=== PATIENT | female | born 1985 | race Caucasian/White ===

== ENCOUNTER → 2017-04-22 | Outpatient (CLI) | payer OTHER ==
[~2017-04-22] MED LIST: ALLERGY SHOTS SC; CELEXA10 M1 PO; CLARITIN 10MG T10 MG PO; FLOMAX 0.4MG C0.4 MG PO; FLONASE 50 MCG16 GM; FOLIC ACID 1MG T1 MG PO; GLYBURIDE2.5 MG PO; IBUPROFEN400 MG PO; INDERAL20 MG PO; IRON TABLETS325 MG PO; LEVOCETIRIZINE D5 MG PO; MAXALT10 MG PO; MECLIZINE 25MG25 MG PO; MEDROL 4MG. DOSE4 MG PO; MONTELUKAST SOD10 MG PO; PERCOCET 5/3251 EACH PO; PRENATAL PLUS1 TA1 PO; SINGULAIR 10 MG10 MG PO; SPRINTEC 35 MCG1 TAB PO; TOPAMAX25 M1 PO; XYZAL5 MG PO; ZITHROMAX Z PA250 MG PO; ZOFRAN ODT4 MG PO; ZOFRAN4 MG PO
--- NOTE | 2017-04-22 13:24 | RADIOLOGY REPORT PS360 ---
PROCEDURE: INDICATIONS FOR THE TEST: Chest pain+ COPD Heart Murmur+ Tobacco Smoking Palpitations+ Fatigue Syncope Edema Hypertension Diabetes Mellitus Rheumatic Fever SOB VALADEZ Obesity Hyperlipidemia Family History HD+ Additional History MVP PATIENT INFORMATION HEIGHT: 67 WEIGHT: 176 GENDER: Female B/P: 149/93 2-D/M-MODE INTERPRETATION: 2-D MEASUREMENTS OBSERVED VALUES IN CMS Right Ventricular Dimension (RVDd) 1.9 Interventricular Septum (Thickness)(IVsd) 0.9 Left Ventricular Internal Dimensions(LVIDd) 4.9 Left Ventricular Posterior Wall (Thickness)(LVPWd) 0.8 Aortic Root 2.5 Aortic Cusp Separation 2.0 Left Atrial Dimensions (LAD) 3.4 2D 1. Left atrium is normal size, left ventricle is normal size, there is no concentric left ventricular hypertrophy, visually estimated ejection fraction 55% with no obvious regional wall motion abnormality. 2. The right atrium and right ventricle are relatively normal size and function. 3. The aortic, mitral and tricuspid valvular grossly normal. 4. The pulmonic valve is poorly visualized. 5. No significant pericardial effusion noted. DOPPLER INTERROGATION: Doppler interrogation of the aortic, mitral and tricuspid valvular presence of trace mitral and tricuspid regurgitation of no hemodynamic significance, diastolic parameters are within normal range. Agitated saline contrast study identifies right to left shunt through patent foramen ovale. CONCLUSION: 1. Normal left ventricular size, preserved left ventricular systolic function, visually estimated ejection fraction 55% with no obvious regional wall motion abnormality, diastolic parameters are within normal range. 2. Trace mitral and tricuspid regurgitation of no hemodynamic significance. 3. Agitated saline contrast study identifies right to left shunt through patent foramen ovale. 4. No significant pericardial effusion noted.
== END ==
LOC: RT 08:45
DX: R01.1 Cardiac murmur, unspecified (principal)